=== PATIENT | male | born 1980 | race African-American/Black ===

== ENCOUNTER 2018-02-23 16:28 | Emergency (ER) | payer MEDICARE, OTHER ==
[~2018-02-23] VITALS: Ht 175.3 cm; Wt 74.8 kg
[~2018-02-23 16:28] MED LIST: BENZ1TAB5 PO; BISA-42 PO; CETI10TA16 PO; CHLO473M MM; CLON1TAB4 PO; DIVA500T17 PO; GUAN1TAB PO; HALO2TAB PO; IBUP-1027 PO; LEVO75TA5 PO; LISD40CA3 PO; OLAN10TA9 PO; TRAZ-86 PO; ZINC56.7 TP
[2018-02-23 16:53] VITALS: BP 123/84
[2018-02-23] MEDS ORDERED: AMOX1TAB61 PO (17:06)
--- NOTE | 2018-02-23 17:07 | PHYS DOC ---
Past Medical History Past Medical History: Anxiety, Bipolar, Hypothyroid, Seizure, Other Additional Past Medical Histor: Autism, mood disorder, ADHD, CATARACTS Past Surgical History: Other Additional Past Surgical Histo: wisdom tooth; testicular cyst Alcohol Use: None Drug Use: None Adult General Chief Complaint Chief Complaint: DENTAL PROBLEM HPI HPI Patient is a 37 year old male who presents to the ER with complaints of left lower dental pain with facial swelling for the last 5 days. He is accompanied by his mother, who is the historian. Pt has mental disabilities. She denies any fever, nausea, vomiting, or known injury. States that the dentist told her the infection needs to be gone before he can take care of his teeth. Review of Systems Review of Systems Constitutional: Denies fever or chills [] HENT: Denies nasal congestion or sore throat, reports left lower dental pain and facial swelling GI: Denies abdominal pain, nausea, or vomiting Integument: Denies rash or skin lesions [] Neurologic: Denies headache, focal weakness or sensory changes [] All other systems were reviewed and found to be within normal limits, except as documented in this note. Allergies Allergies Allergies Coded Allergies Type Severity Reaction Last Updated Verified No Known Drug Allergies 01/11/15 No Physical Exam Physical Exam Constitutional: Well developed, well nourished, no acute distress, non-toxic appearance, obese [] HENT: Normocephalic, atraumatic, bilateral external ears normal, oropharynx moist, diffuse plaque buildup noted, lower left dental tenderness to palpation, nose normal. [] Eyes: PERRLA, conjunctiva normal, no discharge. [] Neck: Normal range of motion, no tenderness, supple, no stridor. [] Skin: Warm, dry, no erythema, no rash. [] Neurologic: Alert and oriented X 3, normal motor function, normal sensory function, no focal deficits noted. [] Psychologic: Affect normal, judgement normal, mood normal. [] Current Patient Data Vital Signs Vital Signs Date Time Temp Pulse Resp B/P (MAP) Pulse Ox O2 Delivery O2 Flow Rate FiO2 02/23/18 16:53 98.5 90 16 123/84 (97) 96 Room Air 98.5 EKG EKG [] Radiology/Procedures Radiology/Procedures [] Course & Med Decision Making Course & Med Decision Making Pertinent Labs and Imaging studies reviewed. (See chart for details) Dx: infected dental caries, dental pain Rx for augmentin written, fill prescription and take as directed. May take tylenol or ibuprofen as needed for pain. Follow up with dentist next week, return to the ER if symptoms worsen. Patient's mother verbalized an understanding of home care, medications, follow-up, and return to ED instructions and was in agreement with the plan of care. [] Dragon Disclaimer Dragon Disclaimer This electronic medical record was generated, in whole or in part, using a voice recognition dictation system. Departure Departure Impression: Primary Impression: Infected dental caries Additional Impression: Pain due to dental caries Disposition: HOME, SELF-CARE Condition: STABLE Referrals: DULCE CHUN MD (PCP) Patient Instructions: Dental Caries-Brief Additional Instructions: Fill prescription and use as directed. He may take Tylenol or ibuprofen as needed for pain. Follow-up with your dentist next week. Return to the emergency room if symptoms worsen. Scripts Amoxicillin/Potassium Clav (AUGMENTIN 875-125 TABLET) 1 Each Tablet 1 TAB PO BID, #20 TAB 0 Refills Prov: GAMALIEL ROWLEY APRN 02/23/18 Problem Qualifiers GAMALIEL ROWLEY APRN Feb 23, 2018 17:07
== END 2018-02-23 17:20 | disposition home or self-care (01) ==
LOC: ER 16:28
DX: K04.7 Periapical abscess without sinus (principal); F31.9 Bipolar disorder, unspecified; E03.9 Hypothyroidism, unspecified; F84.0 Autistic disorder
CPT/HCPCS: 99283

== ENCOUNTER 2019-02-16 11:50 | Emergency (ER) | payer MEDICARE, OTHER ==
[~2019-02-16] VITALS: Ht 167.6 cm; Wt 74.8 kg
[~2019-02-16 11:50] MED LIST changes: +AMOX1TAB61 PO; -CLON1TAB4 PO; +CLONAZEPAM1 MG PO
[2019-02-16 12:19] VITALS: BP 144/105
[2019-02-16] MEDS ORDERED: AMOX1TAB61 PO (12:59)
[2019-02-16] MEDS ORDERED: LIDOCAINE 2% VISCOUS 15 ML SOLUTION. SWSW ONE (13:00)
--- NOTE | 2019-02-16 13:00 | PHYS DOC ---
Past Medical History Past Medical History: Anxiety, Bipolar, Hypothyroid, Seizure, Other Additional Past Medical Histor: Autism, mood disorder, ADHD, CATARACTS Past Surgical History: Other Additional Past Surgical Histo: wisdom tooth; testicular cyst Alcohol Use: None Drug Use: None Adult General Chief Complaint Chief Complaint: DENTAL PROBLEM HPI HPI Patient is a 38 year old male that presents with left facial swelling has been ongoing since last week however he says he has dental pain that is gotten severely worse since last night. Pt is developmentally delayed and staff state he is been in pain today. He states he is in excruciating pain. Review of Systems Review of Systems Constitutional: Denies fever or chills [] Eyes: Denies change in visual acuity, redness, or eye pain [] HENT: Denies nasal congestion or sore throat. Reports dental pain. Respiratory: Denies cough or shortness of breath [] Cardiovascular: No additional information not addressed in HPI [] GI: Denies abdominal pain, nausea, vomiting, bloody stools or diarrhea [] : Denies dysuria or hematuria [] Musculoskeletal: Denies back pain or joint pain [] Integument: Denies rash or skin lesions [] Neurologic: Denies headache, focal weakness or sensory changes [] Endocrine: Denies polyuria or polydipsia [] Complete systems were reviewed and found to be within normal limits, except as documented in this note. Allergies Allergies Allergies Coded Allergies Type Severity Reaction Last Updated Verified No Known Drug Allergies 01/11/15 No Physical Exam Physical Exam Constitutional: Well developed, well nourished, no acute distress, non-toxic appearance. [] HENT: Normocephalic, atraumatic, bilateral external ears normal, oropharynx moist, no oral exudates, nose normal. Left sided facial swelling cavity at Tooth # 18. Eyes: PERRLA, EOMI, conjunctiva normal, no discharge. [] Neck: Normal range of motion, no tenderness, supple, no stridor. [] Cardiovascular:Heart rate regular rhythm, no murmur [] Lungs & Thorax: Bilateral breath sounds clear to auscultation [] Abdomen: Bowel sounds normal, soft, no tenderness, no masses, no pulsatile masses. [] Skin: Warm, dry, no erythema, no rash. [] Back: No tenderness, no CVA tenderness. [] Extremities: No tenderness, no cyanosis, no clubbing, ROM intact, no edema. [] Neurologic: Alert and oriented X 3, normal motor function, normal sensory function, no focal deficits noted. [] Psychologic: Affect normal, judgement normal, mood normal. [] Current Patient Data Vital Signs Vital Signs Date Time Temp Pulse Resp B/P (MAP) Pulse Ox O2 Delivery O2 Flow Rate FiO2 02/16/19 12:19 98.7 84 16 144/105 (118) 97 Room Air 98.7 EKG EKG [] Radiology/Procedures Radiology/Procedures [] Course & Med Decision Making Course & Med Decision Making Pertinent Labs and Imaging studies reviewed. (See chart for details) Will give dental balls and place on Augmentin. Recommend to follow up with dentist. Regis Disclaimer Dragon Disclaimer This electronic medical record was generated, in whole or in part, using a voice recognition dictation system. Departure Departure Impression: Primary Impression: Infected dental caries Disposition: HOME, SELF-CARE Condition: STABLE Referrals: DULCE CHUN MD (PCP) Patient Instructions: Carbamide Peroxide dental solution, Dental Caries Additional Instructions: Thank you for visiting [facility]. We appreciate you trusting us with your care. If any additional problems come up don't hesitate to return to visit us. Please follow up with your primary care provider so they can plan additional care if needed and know about the problem that you had. If symptoms worsen come back to the Emergency Department. Any concerning symptoms that start such as chest pain, shortness of air, weakness or numbness on one side of the body, running high fevers or any other concerning symptoms return to the ER. Please follow up with a dentist as soon as possible. You have been prescribed an antibiotic today to help fight your infection. Please take all of the antibiotic as directed. If after 48 hours the infection is not improving, please return for more care. If the infection worsens, return to ER for additional care. Scripts Amoxicillin/Potassium Clav (AUGMENTIN 875-125 TABLET) 1 Each Tablet 1 TAB PO BID for 7 Days, #14 TAB Prov: AZEEM THOMPSON APRN 02/16/19 AZEEM THOMPSON APRN Feb 16, 2019 13:00
== END 2019-02-16 13:30 | disposition home or self-care (01) ==
LOC: ER 11:50
DX: K04.7 Periapical abscess without sinus (principal); E03.9 Hypothyroidism, unspecified; F31.9 Bipolar disorder, unspecified
CPT/HCPCS: 99283

== ENCOUNTER 2019-08-09 18:01 | Observation (INO) | payer OTHER ==
[~2019-08-09 18:01] MED LIST changes: +ALPR1TAB6 PO; +BENZ2TAB5 PO; +CLON0.1T PO; +CLON0.2T PO; +DOCU-153 PO; +HALO5TAB PO; +LEVO100T5 PO; +PANT40TA77 PO; +POLY17PO28 PO; +QUET200T4 PO; +TRAZ-123 PO; -TRAZ-86 PO
[2019-08-09] MEDS ORDERED: guaiFENesin ORAL 200 MG/10 ML LIQUID. PO PRN (18:30)
[2019-08-09] MEDS ORDERED: ACETAMINOPHEN 325 MG TABLET. PO PRN (18:30)
[2019-08-09] MEDS ORDERED: DOCUSATE SODIUM 100 MG CAPSULE. PO PRN (18:30)
[2019-08-09] MEDS ORDERED: ONDANSETRON PF 4 MG/2 ML VIAL. IV PRN (18:30)
[2019-08-09] MEDS ORDERED: ALPRAZolam 1 MG TABLET PO PRN (18:30)
[2019-08-09] MEDS ORDERED: QUEtiapine 25 MG TABLET. PO PRN (18:30)
[2019-08-09] MEDS ORDERED: ALBUTEROL SULFATE 2.5 MG/3 ML NEBU. NEB PRN (18:30)
[2019-08-09] MEDS ORDERED: diphenhydrAMINE 50 MG/ML VIAL IVP PRN (18:30)
[2019-08-09] MEDS ORDERED: BISACODYL 5 MG TABLET.DR. PO PRN (18:30)
--- NOTE | 2019-08-09 18:45 | PDOC1 ---
History and Physical Date of Admission Date of Admission 08/09/2019 Identification/Chief Complaint Chief Complaint Elevated Depakote levels Source Source: Caregiver, Chart review History of Present Illness History of Present Illness Patient is a 39 year old male who had been brought to the hospital on 08/08/2019 for abdominal discomfort and found to have a possible ileus. The patient was seen by GI, Psych and Neurology. GI deemed the patient appropriate for discharge after he had a bowel movement which seemed to alleviate the symptoms that brought patient into the hospital. Psychiatry recommended decreasing the amount of haldol and instead provide seroquel and ativan as means to treat the patient's agitation. Neurology oracle manufacturing consultant also evaluated the patient and he recommended adjusting the dose of depakotedue to his elevated levels of 130, he had ordered a level in the am and his recommendations are as follow: History of localization-onset epilepsy, last seizure in 2011. Abnormal head CT. 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 As the radiology report states, this is most likely ex vacuo dilatation which of course is to be expected with progression of his intellectual disability. I highly doubt that he has normal pressure hydrocephalus. Furthermore, in order to prove he has it, we would have to send him to a specialized center such as for diagnostic lumbar puncture with pre- and post assessment of gait and intellectual function. I doubt that we would be able to see any change in his intellectual status after the lumbar puncture, nor would we see any change in his gait, which has been stable as long as I have been following him. Funduscopy shows no evidence of increased intracranial pressure. Large amount of stool in the colon. Recommendations: Back off on his psychotropic medications, see orders. Psychiatry consultation Check Depakote levels Physical and Occupational Therapy In regards to possible normal pressure hydrocephalus, per the discussion above, I do not recommend any other further treatment or work-up.* *copied from consultation Patient was readmitted to ensure no further changes to his medications need to be done and to ensure no further agitation would be present. At the time of this note the patient is responding in yes and no to my questions. I am unable to have a meaningful conversation, Clinically patient seems stable and in no acute distress, he is pleasant and enjoying an ice cream at the moment with no GI disturbances. Plan of care discussed with nursing staff, no concerns voiced at the time of this note Past Medical History CENTRAL NERVOUS SYSTEM: Dementia, Seizure Psych: Anxiety, Bipolar, Other Endocrine: Hypothyroidism Past Surgical History Past Surgical History: Appendectomy, Other Social History ALCOHOL: none Drugs: None Allergies Allergies Allergies Coded Allergies Type Severity Reaction Last Updated Verified No Known Drug Allergies 01/11/15 No ROS Review of System unable to assess due to autism Physical Exam Physical Exam GEN.: No apparent distress. Alert and oriented in person HEENT: Head is normocephalic, atraumatic NECK: Supple. LUNGS: Clear to auscultation. HEART: RRR, S1, S2 present. Peripheral pulses intact ABDOMEN: Soft, nontender. Positive bowel sounds. EXTREMITIES: Without any cyanosis. NEUROLOGIC: CN 2 to 12 grossly intact no motor deficits appreciated PSYCHIATRIC: unable to assess SKIN: No ulcerations VTE Prophylaxis Ordered VTE Prophylaxis Devices: Yes VTE Pharmacological Prophylaxi: No Assessment/Plan Assessment/Plan Elevated depakote level History of autism long term resident. History of constipation with no evidence of ileus on x ray Plan: continue with home meds will order Amitiza as recommended by GI oracle manufacturing consultant on last admission valproic acid in am consult neurolgy in am further recommendations based on clinical course dvt prophylaxis: SCD CYRIL JOHNSON MD Aug 09, 2019 18:45
[2019-08-09 19:00] VITALS: BP 144/88
[2019-08-09] MEDS: DOCUSATE SODIUM 100 MG CAPSULE. PO SCH (20:23)
[2019-08-09] MEDS: LUBIPROSTONE 24 MCG CAPSULE PO SCH (20:23)
[2019-08-09] MEDS: cloNIDine HCL 0.2 MG TABLET PO SCH (20:24)
[2019-08-09] MEDS ORDERED: clonazePAM 0.5 MG TABLET PO SCH (21:00)
[2019-08-09] MEDS ORDERED: traZODone 100 MG TABLET. PO SCH (21:00)
[2019-08-09] MEDS ORDERED: QUEtiapine 100 MG TABLET. PO SCH (21:00)
[2019-08-10 03:41] VITALS: BP 81/51
[2019-08-10 05:44] LABS: VAL ACID 87 mcg/mL (50-100)
[2019-08-10 07:00] VITALS: BP 113/84
[2019-08-10] MEDS: LEVOTHYROXINE 100 MCG TABLET PO SCH (07:00)
[2019-08-10] MEDS: PANTOPRAZOLE 40 MG TABLET.DR. PO SCH (07:30)
[2019-08-10] MEDS: traZODone 100 MG TABLET. PO SCH ×3 (08:00→22:57)
[2019-08-10] MEDS: cloNIDine HCL 0.1 MG TABLET PO SCH ×2 (08:00→14:21)
[2019-08-10] MEDS: LUBIPROSTONE 24 MCG CAPSULE PO SCH ×2 (08:00→17:00)
[2019-08-10] MEDS: CETIRIZINE HCL 10 MG TABLET. PO SCH (09:00)
[2019-08-10] MEDS: HALOPERIDOL 2 MG TABLET. PO SCH ×4 (09:00→22:57)
[2019-08-10] MEDS: POLYETHYLENE GLYCOL 3350 17 GM PACKET. PO SCH (09:00)
[2019-08-10] MEDS: DOCUSATE SODIUM 100 MG CAPSULE. PO SCH ×3 (09:00→22:57)
[2019-08-10] MEDS ORDERED: BENZTROPINE MESYLATE 1 MG TABLET. PO SCH (09:00)
[2019-08-10] MEDS: BENZTROPINE MESYLATE 1 MG TABLET. PO SCH (09:00)
--- NOTE | 2019-08-10 09:08 | PDOC ---
PROGRESS NOTES Chief Complaint Chief Complaint Elevated depakote level History of autism jail resident. History of constipation with no evidence of ileus on x ray Plan: continue with dose adjustment as per our business systems consultant, recommendations greatly appreciated. will order Amitiza as recommended by GI business systems consultant on last admission further recommendations based on clinical course reassess in the am hopefully discharge in the next 24 to 48 hours if he does not present agitation or further dose adjustments. dvt prophylaxis: SCD History of Present Illness History of Present Illness Patient today quite lethargic, no acute events reported overnight, discussed with business systems consultant. Recommendations greatly appreciated. Vitals Vitals Vital Signs Date Time Temp Pulse Resp B/P (MAP) Pulse Ox O2 Delivery O2 Flow Rate FiO2 08/10/19 07:00 74 16 113/84 (94) 100 Room Air 08/10/19 03:41 97.7 97.7 Physical Exam General: No acute distress Heart: Regular rate, Normal S1, Normal S2 Lungs: Clear Abdomen: Normal bowel sounds, Soft, No tenderness Extremities: No clubbing, No cyanosis, No edema Skin: No rashes, No breakdown Labs LABS Laboratory Tests Test 08/10/19 04:41 Valproic Acid (Depakene) Level 87 mcg/mL (50-100) Valproic Acid Last Dose Date 08/08/19 Valproic Acid Last Dose Time 2099 Review of Systems Review of Systems unable to obtain due to autism Comment Review of Relevant I have reviewed the following items dustin (where applicable) has been applied. Labs Laboratory Tests Test 08/10/19 04:41 Valproic Acid (Depakene) Level 87 mcg/mL (50-100) Valproic Acid Last Dose Date 08/08/19 Valproic Acid Last Dose Time 2099 Laboratory Tests Test 08/10/19 04:41 Valproic Acid (Depakene) Level 87 mcg/mL (50-100) Valproic Acid Last Dose Date 08/08/19 Valproic Acid Last Dose Time 2100 Medications Current Medications Ondansetron HCl (Zofran) 4 mg PRN Q4HRS PRN IV NAUSEA/VOMITING; Start 08/09/19 at 18:30 Acetaminophen (Tylenol) 650 mg PRN Q4HRS PRN PO TEMP OVER 100.4F OR MILD PAIN; Start 08/09/19 at 18:30 Diphenhydramine HCl (Benadryl) 25 mg PRN Q4HRS PRN IVP ITCHING; Start 08/09/19 at 18:30 Docusate Sodium (Colace) 100 mg PRN BID PRN PO CONSTIPATION; Start 08/09/19 at 18:30 Albuterol Sulfate (Ventolin Neb Soln) 2.5 mg PRN Q4HRS PRN NEB SHORTNESS OF BREATH; Start 08/09/19 at 18:30 Guaifenesin (Robitussin) 200 mg PRN Q4HRS PRN PO COUGH; Start 08/09/19 at 18:30 Lorazepam (Ativan Inj) 2 mg PRN Q4HRS PRN IV ANXIETY / AGITATION; Start 08/09/19 at 18:30 Alprazolam (Xanax) 1 mg PRN DAILY PRN PO aggitation; Start 08/09/19 at 18:30 Bisacodyl (Dulcolax Tab) 5 mg PRN BID PRN PO CONSTIPATION- 2ND CHOICE; Start 08/09/19 at 18:30 Cetirizine HCl (ZyrTEC) 10 mg DAILY PO ; Start 08/10/19 at 09:00 Clonidine HCl (Catapres) 0.1 mg BIDWBKFT/MARYAN PO ; Start 08/10/19 at 08:00 Clonidine HCl (Catapres) 0.2 mg QHS PO Last administered on 08/09/19at 20:24; Start 08/09/19 at 21:00 Docusate Sodium (Colace) 100 mg BID PO Last administered on 08/09/19at 20:23; Start 08/09/19 at 21:00 Levothyroxine Sodium (Synthroid) 100 mcg DAILY07 PO ; Start 08/10/19 at 07:00 Pantoprazole Sodium (Protonix) 40 mg DAILYAC PO ; Start 08/10/19 at 07:30 Polyethylene Glycol (miraLAX PACKET) 17 gm DAILY PO ; Start 08/10/19 at 09:00 Trazodone HCl (Desyrel) 100 mg DAILYWBKFT PO ; Start 08/10/19 at 08:00 Trazodone HCl (Desyrel) 200 mg QHS PO Last administered on 08/09/19at 20:23; Start 08/09/19 at 21:00; Stop 08/10/19 at 08:50; Status DC Benztropine Mesylate (Cogentin) 2 mg DAILY PO ; Start 08/10/19 at 09:00; Stop 08/10/19 at 08:50; Status DC Clonazepam (KlonoPIN) 1 mg QHS PO Last administered on 08/09/19at 20:22; Start 08/09/19 at 21:00; Stop 08/10/19 at 08:50; Status DC Quetiapine Fumarate (SEROquel) 200 mg QHS PO Last administered on 08/09/19at 20:23; Start 08/09/19 at 21:00; Stop 08/10/19 at 08:50; Status DC Quetiapine Fumarate (SEROquel) 25 mg PRN Q8HRS PRN PO agitation- 2ND CHOICE; Start 08/09/19 at 18:30 Lubiprostone (Amitiza) 24 mcg BIDWMEALS PO Last administered on 08/09/19at 20:23; Start 08/09/19 at 19:00 Benztropine Mesylate (Cogentin) 1 mg DAILY PO ; Start 08/10/19 at 09:00 Clonazepam (KlonoPIN) 0.5 mg QHS PO ; Start 08/10/19 at 21:00 Quetiapine Fumarate (SEROquel) 100 mg QHS PO ; Start 08/10/19 at 21:00 Trazodone HCl (Desyrel) 100 mg QHS PO ; Start 08/10/19 at 21:00 Haloperidol (Haldol) 2 mg TID PO ; Start 08/10/19 at 09:00 Divalproex Sodium (Depakote Er) 500 mg QHS PO ; Start 08/10/19 at 21:00 Active Scripts Active Pantoprazole Sodium (Pantoprazole Sodium) 40 Mg Tablet.dr 40 Mg PO DAILYAC 30 Days Reported Dok (Docusate Sodium) 100 Mg Capsule 100 Mg PO BID Alprazolam 1 Mg Tablet 1 Tab PO DAILY PRN Seroquel (Quetiapine Fumarate) 200 Mg Tablet 1 Tab PO QHS Polyethylene Glycol 3350 17 Gm Powd.pack 17 Gm PO DAILY Levothyroxine Sodium 100 Mcg Tablet 1 Tab PO DAILY Haloperidol 5 Mg Tablet 1 Tab PO TID Benztropine Mesylate 2 Mg Tablet 2 Mg PO DAILY Clonidine Hcl 0.2 Mg Tablet 1 Tab PO QHS Clonidine Hcl 0.1 Mg Tablet 0.1 Mg PO BIDWBKFT/MARYAN Clonazepam 1 Mg Tablet 1 Tab PO QHS Trazodone Hcl 100 Mg Tablet 200 Mg PO QHS Trazodone Hcl 100 Mg Tablet 100 Mg PO DAILYWBKFT Divalproex Sodium Er (Divalproex Sodium) 500 Mg Tab.er.24h 2 Tab PO QHS Cetirizine Hcl 10 Mg Tablet 1 Tab PO DAILY Dulcolax (Bisacodyl) 5 Mg Tablet.dr 5 Mg PO PRN BID PRN Vitals/I & O Vital Sign - Last 24 Hours 08/09/19 08/09/19 08/09/19 08/10/19 19:00 20:24 23:42 03:41 Temp 97.5 97.7 97.5 97.7 Pulse 77 71 79 Resp 18 16 18 B/P (MAP) 144/88 (106) 144/88 81/51 (61) Pulse Ox 93 O2 Delivery Room Air Room Air 08/10/19 07:00 Pulse 74 Resp 16 B/P (MAP) 113/84 (94) Pulse Ox 100 O2 Delivery Room Air Intake and Output 08/09/19 08/09/19 08/10/19 15:00 23:00 07:00 Intake Total 200 ml 0 ml Balance 200 ml 0 ml CYRIL JOHNSON MD Aug 10, 2019 09:08
--- NOTE | 2019-08-10 10:44 | PDOC ---
PROGRESS NOTES Assessment History of localization-onset epilepsy, last seizure in 2011. Autism, intellectual disability Abnormal head CT. Doubt normal pressure hydrocephalus Large amount of stool in the colon. Encephalopathy due to excessive psychotropic medications Patient was discharged yesterday, I wanted the patient observed the least one more night, I spoke to Dr. Alberto Garner admitted the patient. Unfortunate patient received the high doses of psychotropic medications again last night and is very sedated today. His Depakote level was 130 yesterday morning, it's down to 87 this morning Plan Observe overnight, still sedated Psychiatry saw patient yesterday He should be on the following medications, holding if sedated: Alprazolam (Xanax) 1 mg DAILY PRN PO aggitation Divalproex Sodium (Depakote Er) 500 mg QHS PO Trazodone HCl (Desyrel) 100 mg QHS PO Benztropine Mesylate (Cogentin) 1 mg DAILY PO Clonazepam (KlonoPIN) 0.5 mg QHS PO Haloperidol (Haldol) 2 mg TID PO Quetiapine Fumarate (SEROquel) 100 mg QHS PO Discussed with Dr. Dominguez Subjective none Objective Vital Signs Date Time Temp Pulse Resp B/P (MAP) Pulse Ox O2 Delivery O2 Flow Rate FiO2 08/10/19 07:00 74 16 113/84 (94) 100 Room Air 08/10/19 03:41 97.7 97.7 Intake and Output 08/10/19 07:00 Intake Total 200 ml Balance 200 ml Intake Oral 200 ml PHYSICAL EXAM Sleeping, difficult to arouse PERRL. EOMI. CN: no focal findings. Muscle tone: normal. Muscle strength: 4/5 DTR: 2+ Plantar reflex: flexor Gait: not tested Sensory exam: not cooperative. Cerebellar: Not cooperative. Review of Relevant I have reviewed the following items dustin (where applicable) has been applied. Labs Laboratory Tests Test 08/10/19 04:41 Valproic Acid (Depakene) Level 87 mcg/mL (50-100) Valproic Acid Last Dose Date 08/08/19 Valproic Acid Last Dose Time 2100 Laboratory Tests Test 08/10/19 04:41 Valproic Acid (Depakene) Level 87 mcg/mL (50-100) Valproic Acid Last Dose Date 08/08/19 Valproic Acid Last Dose Time 2100 Medications Current Medications Ondansetron HCl (Zofran) 4 mg PRN Q4HRS PRN IV NAUSEA/VOMITING; Start 08/09/19 at 18:30 Acetaminophen (Tylenol) 650 mg PRN Q4HRS PRN PO TEMP OVER 100.4F OR MILD PAIN; Start 08/09/19 at 18:30 Diphenhydramine HCl (Benadryl) 25 mg PRN Q4HRS PRN IVP ITCHING; Start 08/09/19 at 18:30 Docusate Sodium (Colace) 100 mg PRN BID PRN PO CONSTIPATION; Start 08/09/19 at 18:30 Albuterol Sulfate (Ventolin Neb Soln) 2.5 mg PRN Q4HRS PRN NEB SHORTNESS OF BREATH; Start 08/09/19 at 18:30 Guaifenesin (Robitussin) 200 mg PRN Q4HRS PRN PO COUGH; Start 08/09/19 at 18:30 Lorazepam (Ativan Inj) 2 mg PRN Q4HRS PRN IV ANXIETY / AGITATION; Start 08/09/19 at 18:30 Alprazolam (Xanax) 1 mg PRN DAILY PRN PO aggitation; Start 08/09/19 at 18:30 Bisacodyl (Dulcolax Tab) 5 mg PRN BID PRN PO CONSTIPATION- 2ND CHOICE; Start 08/09/19 at 18:30 Cetirizine HCl (ZyrTEC) 10 mg DAILY PO ; Start 08/10/19 at 09:00 Clonidine HCl (Catapres) 0.1 mg BIDWBKFT/MARYNA PO ; Start 08/10/19 at 08:00 Clonidine HCl (Catapres) 0.2 mg QHS PO Last administered on 08/09/19at 20:24; Start 08/09/19 at 21:00 Docusate Sodium (Colace) 100 mg BID PO Last administered on 08/09/19at 20:23; Start 08/09/19 at 21:00 Levothyroxine Sodium (Synthroid) 100 mcg DAILY07 PO ; Start 08/10/19 at 07:00 Pantoprazole Sodium (Protonix) 40 mg DAILYAC PO ; Start 08/10/19 at 07:30 Polyethylene Glycol (miraLAX PACKET) 17 gm DAILY PO ; Start 08/10/19 at 09:00 Trazodone HCl (Desyrel) 100 mg DAILYWBKFT PO ; Start 08/10/19 at 08:00 Trazodone HCl (Desyrel) 200 mg QHS PO Last administered on 08/09/19at 20:23; Start 08/09/19 at 21:00; Stop 08/10/19 at 08:50; Status DC Benztropine Mesylate (Cogentin) 2 mg DAILY PO ; Start 08/10/19 at 09:00; Stop 08/10/19 at 08:50; Status DC Clonazepam (KlonoPIN) 1 mg QHS PO Last administered on 08/09/19at 20:22; Start 08/09/19 at 21:00; Stop 08/10/19 at 08:50; Status DC Quetiapine Fumarate (SEROquel) 200 mg QHS PO Last administered on 08/09/19at 20:23; Start 08/09/19 at 21:00; Stop 08/10/19 at 08:50; Status DC Quetiapine Fumarate (SEROquel) 25 mg PRN Q8HRS PRN PO agitation- 2ND CHOICE; Start 08/09/19 at 18:30 Lubiprostone (Amitiza) 24 mcg BIDWMEALS PO Last administered on 08/09/19at 20:23; Start 08/09/19 at 19:00 Benztropine Mesylate (Cogentin) 1 mg DAILY PO ; Start 08/10/19 at 09:00 Clonazepam (KlonoPIN) 0.5 mg QHS PO ; Start 08/10/19 at 21:00 Quetiapine Fumarate (SEROquel) 100 mg QHS PO ; Start 08/10/19 at 21:00 Trazodone HCl (Desyrel) 100 mg QHS PO ; Start 08/10/19 at 21:00 Haloperidol (Haldol) 2 mg TID PO ; Start 08/10/19 at 09:00 Divalproex Sodium (Depakote Er) 500 mg QHS PO ; Start 08/10/19 at 21:00 Active Scripts Active Pantoprazole Sodium (Pantoprazole Sodium) 40 Mg Tablet.dr 40 Mg PO DAILYAC 30 Days Reported Dok (Docusate Sodium) 100 Mg Capsule 100 Mg PO BID Alprazolam 1 Mg Tablet 1 Tab PO DAILY PRN Seroquel (Quetiapine Fumarate) 200 Mg Tablet 1 Tab PO QHS Polyethylene Glycol 3350 17 Gm Powd.pack 17 Gm PO DAILY Levothyroxine Sodium 100 Mcg Tablet 1 Tab PO DAILY Haloperidol 5 Mg Tablet 1 Tab PO TID Benztropine Mesylate 2 Mg Tablet 2 Mg PO DAILY Clonidine Hcl 0.2 Mg Tablet 1 Tab PO QHS Clonidine Hcl 0.1 Mg Tablet 0.1 Mg PO BIDWBKFT/MARYAN Clonazepam 1 Mg Tablet 1 Tab PO QHS Trazodone Hcl 100 Mg Tablet 200 Mg PO QHS Trazodone Hcl 100 Mg Tablet 100 Mg PO DAILYWBKFT Divalproex Sodium Er (Divalproex Sodium) 500 Mg Tab.er.24h 2 Tab PO QHS Cetirizine Hcl 10 Mg Tablet 1 Tab PO DAILY Dulcolax (Bisacodyl) 5 Mg Tablet.dr 5 Mg PO PRN BID PRN Vitals/I & O Vital Sign - Last 24 Hours 08/09/19 08/09/19 08/09/19 08/10/19 19:00 20:24 23:42 03:41 Temp 97.5 97.7 97.5 97.7 Pulse 77 71 79 Resp 18 16 18 B/P (MAP) 144/88 (106) 144/88 81/51 (61) Pulse Ox 93 O2 Delivery Room Air Room Air 08/10/19 07:00 Pulse 74 Resp 16 B/P (MAP) 113/84 (94) Pulse Ox 100 O2 Delivery Room Air Intake and Output 08/09/19 08/09/19 08/10/19 15:00 23:00 07:00 Intake Total 200 ml 0 ml Balance 200 ml 0 ml JOE WALKER MD Aug 10, 2019 10:44
[2019-08-10 19:00] VITALS: BP 103/75
[2019-08-10] MEDS: clonazePAM 0.5 MG TABLET PO SCH ×2 (21:00→22:57)
[2019-08-10] MEDS: DIVALPROEX EXTENDED RELEASE 500 MG TAB.ER.24H. PO SCH ×2 (21:00→22:57)
[2019-08-10] MEDS: QUEtiapine 100 MG TABLET. PO SCH ×2 (21:00→22:56)
[2019-08-10] MEDS: cloNIDine HCL 0.2 MG TABLET PO SCH ×2 (21:00→22:57)
[2019-08-11 03:00] VITALS: BP 112/74
[2019-08-11] MEDS: LEVOTHYROXINE 100 MCG TABLET PO SCH (05:53)
[2019-08-11] MEDS: PANTOPRAZOLE 40 MG TABLET.DR. PO SCH (05:53)
[2019-08-11 07:00] VITALS: BP 123/92
[2019-08-11] MEDS: POLYETHYLENE GLYCOL 3350 17 GM PACKET. PO SCH (09:00)
[2019-08-11] MEDS: CETIRIZINE HCL 10 MG TABLET. PO SCH (09:04)
[2019-08-11] MEDS: traZODone 100 MG TABLET. PO SCH (09:04)
[2019-08-11] MEDS: BENZTROPINE MESYLATE 1 MG TABLET. PO SCH (09:04)
[2019-08-11] MEDS: DOCUSATE SODIUM 100 MG CAPSULE. PO SCH (09:05)
[2019-08-11] MEDS: HALOPERIDOL 2 MG TABLET. PO SCH ×2 (09:05→12:59)
[2019-08-11] MEDS: cloNIDine HCL 0.1 MG TABLET PO SCH ×2 (09:05→13:00)
[2019-08-11] MEDS: LUBIPROSTONE 24 MCG CAPSULE PO SCH (09:05)
[2019-08-11 11:00] VITALS: BP 116/81
--- NOTE | 2019-08-11 11:41 | PDOC ---
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 History of constipation with no evidence of ileus on x ray Plan: continue with dose adjustment as per our business sales consultant, recommendations greatly appreciated. will order Amitiza as recommended by GI business sales consultant on last admission further recommendations based on clinical course meds need to be corrected, per RN. hopefully discharge in the next 24 to 48 hours if he does not present agitation or further dose adjustments. dvt prophylaxis: SCD History of Present Illness History of Present Illness LESS lethargic, Vitals Vitals Vital Signs Date Time Temp Pulse Resp B/P (MAP) Pulse Ox O2 Delivery O2 Flow Rate FiO2 08/11/19 09:05 90 123/92 08/11/19 08:00 Room Air 08/11/19 07:00 98.3 16 96 98.3 Physical Exam General: Cooperative, No acute distress Heart: Regular rate, Normal S1, Normal S2 Lungs: Clear Abdomen: Normal bowel sounds, Soft, No tenderness Extremities: No clubbing, No cyanosis, No edema Skin: No rashes, No breakdown Comment Review of Relevant I have reviewed the following items dustin (where applicable) has been applied. Labs Laboratory Tests Test 08/10/19 04:41 Valproic Acid (Depakene) Level 87 mcg/mL (50-100) Valproic Acid Last Dose Date 08/08/19 Valproic Acid Last Dose Time 2100 Medications Current Medications Ondansetron HCl (Zofran) 4 mg PRN Q4HRS PRN IV NAUSEA/VOMITING; Start 08/09/19 at 18:30 Acetaminophen (Tylenol) 650 mg PRN Q4HRS PRN PO TEMP OVER 100.4F OR MILD PAIN; Start 08/09/19 at 18:30 Diphenhydramine HCl (Benadryl) 25 mg PRN Q4HRS PRN IVP ITCHING; Start 08/09/19 at 18:30 Docusate Sodium (Colace) 100 mg PRN BID PRN PO CONSTIPATION; Start 08/09/19 at 18:30 Albuterol Sulfate (Ventolin Neb Soln) 2.5 mg PRN Q4HRS PRN NEB SHORTNESS OF BREATH; Start 08/09/19 at 18:30 Guaifenesin (Robitussin) 200 mg PRN Q4HRS PRN PO COUGH; Start 08/09/19 at 18:30 Lorazepam (Ativan Inj) 2 mg PRN Q4HRS PRN IV ANXIETY / AGITATION; Start 08/09/19 at 18:30 Alprazolam (Xanax) 1 mg PRN DAILY PRN PO aggitation; Start 08/09/19 at 18:30 Bisacodyl (Dulcolax Tab) 5 mg PRN BID PRN PO CONSTIPATION- 2ND CHOICE; Start 08/09/19 at 18:30 Cetirizine HCl (ZyrTEC) 10 mg DAILY PO Last administered on 08/11/19at 09:04; Start 08/10/19 at 09:00 Clonidine HCl (Catapres) 0.1 mg BIDWBKFT/MARYAN PO Last administered on 08/11/19at 09:05; Start 08/10/19 at 08:00 Clonidine HCl (Catapres) 0.2 mg QHS PO Last administered on 08/10/19at 22:57; Start 08/09/19 at 21:00 Docusate Sodium (Colace) 100 mg BID PO Last administered on 08/11/19at 09:05; Start 08/09/19 at 21:00 Levothyroxine Sodium (Synthroid) 100 mcg DAILY07 PO Last administered on 08/11/19at 05:53; Start 08/10/19 at 07:00 Pantoprazole Sodium (Protonix) 40 mg DAILYAC PO Last administered on 08/11/19at 05:53; Start 08/10/19 at 07:30 Polyethylene Glycol (miraLAX PACKET) 17 gm DAILY PO ; Start 08/10/19 at 09:00 Trazodone HCl (Desyrel) 100 mg DAILYWBKFT PO Last administered on 08/11/19at 09:04; Start 08/10/19 at 08:00 Trazodone HCl (Desyrel) 200 mg QHS PO Last administered on 08/09/19at 20:23; Start 08/09/19 at 21:00; Stop 08/10/19 at 08:50; Status DC Benztropine Mesylate (Cogentin) 2 mg DAILY PO ; Start 08/10/19 at 09:00; Stop 08/10/19 at 08:50; Status DC Clonazepam (KlonoPIN) 1 mg QHS PO Last administered on 08/09/19at 20:22; Start 08/09/19 at 21:00; Stop 08/10/19 at 08:50; Status DC Quetiapine Fumarate (SEROquel) 200 mg QHS PO Last administered on 08/09/19at 2 0:23; Start 08/09/19 at 21:00; Stop 08/10/19 at 08:50; Status DC Quetiapine Fumarate (SEROquel) 25 mg PRN Q8HRS PRN PO agitation- 2ND CHOICE; Start 08/09/19 at 18:30 Lubiprostone (Amitiza) 24 mcg BIDWMEALS PO Last administered on 08/11/19at 09:05; Start 08/09/19 at 19:00 Benztropine Mesylate (Cogentin) 1 mg DAILY PO Last administered on 08/11/19at 09:04; Start 08/10/19 at 09:00 Clonazepam (KlonoPIN) 0.5 mg QHS PO Last administered on 08/10/19at 22:57; Start 08/10/19 at 21:00 Quetiapine Fumarate (SEROquel) 100 mg QHS PO Last administered on 08/10/19at 22:56; Start 08/10/19 at 21:00 Trazodone HCl (Desyrel) 100 mg QHS PO Last administered on 08/10/19at 22:57; Start 08/10/19 at 21:00 Haloperidol (Haldol) 2 mg TID PO Last administered on 08/11/19at 09:05; Start 08/10/19 at 09:00 Divalproex Sodium (Depakote Er) 500 mg QHS PO Last administered on 08/10/19at 22:57; Start 08/10/19 at 21:00 Active Scripts Active Pantoprazole Sodium (Pantoprazole Sodium) 40 Mg Tablet. 40 Mg PO DAILYAC 30 Days Reported Dok (Docusate Sodium) 100 Mg Capsule 100 Mg PO BID Alprazolam 1 Mg Tablet 1 Tab PO DAILY PRN Seroquel (Quetiapine Fumarate) 200 Mg Tablet 1 Tab PO QHS Polyethylene Glycol 3350 17 Gm Powd.pack 17 Gm PO DAILY Levothyroxine Sodium 100 Mcg Tablet 1 Tab PO DAILY Haloperidol 5 Mg Tablet 1 Tab PO TID Benztropine Mesylate 2 Mg Tablet 2 Mg PO DAILY Clonidine Hcl 0.2 Mg Tablet 1 Tab PO QHS Clonidine Hcl 0.1 Mg Tablet 0.1 Mg PO BIDWBKFT/MARYAN Clonazepam 1 Mg Tablet 1 Tab PO QHS Trazodone Hcl 100 Mg Tablet 200 Mg PO QHS Trazodone Hcl 100 Mg Tablet 100 Mg PO DAILYWBKFT Divalproex Sodium Er (Divalproex Sodium) 500 Mg Tab.er.24h 2 Tab PO QHS Cetirizine Hcl 10 Mg Tablet 1 Tab PO DAILY Dulcolax (Bisacodyl) 5 Mg Tablet.dr 5 Mg PO PRN BID PRN Vitals/I & O Vital Sign - Last 24 Hours 08/10/19 08/10/19 08/10/19 08/10/19 14:21 19:00 20:00 22:57 Temp 97.5 97.5 Pulse 74 81 81 Resp 18 B/P (MAP) 113/84 103/75 (84) 103/75 O2 Delivery Room Air Room Air 08/11/19 08/11/19 08/11/19 08/11/19 03:00 07:00 08:00 09:05 Temp 97.1 98.3 97.1 98.3 Pulse 90 90 90 Resp 18 16 B/P (MAP) 112/74 (87) 123/92 (102) 123/92 Pulse Ox 98 96 O2 Delivery Room Air Room Air Room Air Intake and Output 08/10/19 08/10/19 08/11/19 15:00 23:00 07:00 Intake Total 240 ml Balance 240 ml ROSE WARREN MD Aug 11, 2019 11:41
--- NOTE | 2019-08-11 13:55 | PDOC3 ---
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 History of constipation with no evidence of ileus on x ray Plan: continue with dose adjustment as per our renewable energy consultant, recommendations greatly ap preciated. Amitiza as recommended by GI renewable energy consultant on last admission meds corrected, per RN. dr LANIE HORN WITH discharge PER RN dvt prophylaxis: SCD History of Present Illness History of Present Illness LESS lethargic, Vitals Vitals Vital Signs Date Time Temp Pulse Resp B/P (MAP) Pulse Ox O2 Delivery O2 Flow Rate FiO2 08/11/19 09:05 90 123/92 08/11/19 08:00 Room Air 08/11/19 07:00 98.3 16 96 98.3 Physical Exam General: Cooperative, No acute distress Heart: Regular rate, Normal S1, Normal S2 Lungs: Clear Abdomen: Normal bowel sounds, Soft, No tenderness Extremities: No clubbing, No cyanosis, No edema Skin: No rashes, No breakdown Comment Review of Relevant I have reviewed the following items dustin (where applicable) has been applied. Labs Laboratory Tests Test 08/10/19 04:41 Valproic Acid (Depakene) Level 87 mcg/mL (50-100) Valproic Acid Last Dose Date 08/08/19 Valproic Acid Last Dose Time 2100 Medications Brief Hospital Course Mr. Borges is a 39 old [sex] who presented with [DEPAKOTE TOXICITY, ACUTE ] CONDITION AT DISCHARGE: Improved Discharge Medications Current Medications Ondansetron HCl (Zofran) 4 mg PRN Q4HRS PRN IV NAUSEA/VOMITING; Start 08/09/19 at 18:30 Acetaminophen (Tylenol) 650 mg PRN Q4HRS PRN PO TEMP OVER 100.4F OR MILD PAIN; Start 08/09/19 at 18:30 Diphenhydramine HCl (Benadryl) 25 mg PRN Q4HRS PRN IVP ITCHING; Start 08/09/19 at 18:30 Docusate Sodium (Colace) 100 mg PRN BID PRN PO CONSTIPATION; Start 08/09/19 at 18:30 Albuterol Sulfate (Ventolin Neb Soln) 2.5 mg PRN Q4HRS PRN NEB SHORTNESS OF BREATH; Start 08/09/19 at 18:30 Guaifenesin (Robitussin) 200 mg PRN Q4HRS PRN PO COUGH; Start 08/09/19 at 18:30 Lorazepam (Ativan Inj) 2 mg PRN Q4HRS PRN IV ANXIETY / AGITATION; Start 08/09/19 at 18:30 Alprazolam (Xanax) 1 mg PRN DAILY PRN PO aggitation; Start 08/09/19 at 18:30 Bisacodyl (Dulcolax Tab) 5 mg PRN BID PRN PO CONSTIPATION- 2ND CHOICE; Start 08/09/19 at 18:30 Cetirizine HCl (ZyrTEC) 10 mg DAILY PO Last administered on 08/11/19at 09:04; Start 08/10/19 at 09:00 Clonidine HCl (Catapres) 0.1 mg BIDWBKFT/MARYAN PO Last administered on 08/11/19at 13:00; Start 08/10/19 at 08:00 Clonidine HCl (Catapres) 0.2 mg QHS PO Last administered on 08/10/19at 22:57; Start 08/09/19 at 21:00 Docusate Sodium (Colace) 100 mg BID PO Last administered on 08/11/19at 09:05; Start 08/09/19 at 21:00 Levothyroxine Sodium (Synthroid) 100 mcg DAILY07 PO Last administered on 08/11/19at 05:53; Start 08/10/19 at 07:00 Pantoprazole Sodium (Protonix) 40 mg DAILYAC PO Last administered on 08/11/19at 05:53; Start 08/10/19 at 07:30 Polyethylene Glycol (miraLAX PACKET) 17 gm DAILY PO ; Start 08/10/19 at 09:00 Trazodone HCl (Desyrel) 100 mg DAILYWBKFT PO Last administered on 08/11/19at 09:04; Start 08/10/19 at 08:00 Trazodone HCl (Desyrel) 200 mg QHS PO Last administered on 08/09/19at 20:23; Start 08/09/19 at 21:00; Stop 08/10/19 at 08:50; Status DC Benztropine Mesylate (Cogentin) 2 mg DAILY PO ; Start 08/10/19 at 09:00; Stop 08/10/19 at 08:50; Status DC Clonazepam (KlonoPIN) 1 mg QHS PO Last administered on 08/09/19at 20:22; Start 08/09/19 at 21:00; Stop 08/10/19 at 08:50; Status DC Quetiapine Fumarate (SEROquel) 200 mg QHS PO Last administered on 08/09/19at 20:23; Start 08/09/19 at 21:00; Stop 08/10/19 at 08:50; Status DC Quetiapine Fumarate (SEROquel) 25 mg PRN Q8HRS PRN PO agitation- 2ND CHOICE; Start 08/09/19 at 18:30 Lubiprostone (Amitiza) 24 mcg BIDWMEALS PO Last administered on 08/11/19at 09:05; Start 08/09/19 at 19:00 Benztropine Mesylate (Cogentin) 1 mg DAILY PO Last administered on 08/11/19at 09:04; Start 08/10/19 at 09:00 Clonazepam (KlonoPIN) 0.5 mg QHS PO Last administered on 08/10/19at 22:57; Start 08/10/19 at 21:00 Quetiapine Fumarate (SEROquel) 100 mg QHS PO Last administered on 08/10/19at 22:56; Start 08/10/19 at 21:00 Trazodone HCl (Desyrel) 100 mg QHS PO Last administered on 08/10/19at 22:57; Start 08/10/19 at 21:00 Haloperidol (Haldol) 2 mg TID PO Last administered on 08/11/19at 12:59; Start 08/10/19 at 09:00 Divalproex Sodium (Depakote Er) 500 mg QHS PO Last administered on 08/10/19at 22:57; Start 08/10/19 at 21:00 Active Scripts Active Pantoprazole Sodium (Pantoprazole Sodium) 40 Mg Tablet.dr 40 Mg PO DAILYAC 30 Days Reported Dok (Docusate Sodium) 100 Mg Capsule 100 Mg PO BID Alprazolam 1 Mg Tablet 1 Tab PO DAILY PRN Seroquel (Quetiapine Fumarate) 200 Mg Tablet 1 Tab PO QHS Polyethylene Glycol 3350 17 Gm Powd.pack 17 Gm PO DAILY Levothyroxine Sodium 100 Mcg Tablet 1 Tab PO DAILY Haloperidol 5 Mg Tablet 1 Tab PO TID Benztropine Mesylate 2 Mg Tablet 2 Mg PO DAILY Clonidine Hcl 0.2 Mg Tablet 1 Tab PO QHS Clonidine Hcl 0.1 Mg Tablet 0.1 Mg PO BIDWBKFT/MARYAN Clonazepam 1 Mg Tablet 1 Tab PO QHS Trazodone Hcl 100 Mg Tablet 200 Mg PO QHS Trazodone Hcl 100 Mg Tablet 100 Mg PO DAILYWBKFT Divalproex Sodium Er (Divalproex Sodium) 500 Mg Tab.er.24h 2 Tab PO QHS Cetirizine Hcl 10 Mg Tablet 1 Tab PO DAILY Dulcolax (Bisacodyl) 5 Mg Tablet.dr 5 Mg PO PRN BID PRN Vital Signs Vital Signs Date Time Temp Pulse Resp B/P (MAP) Pulse Ox O2 Delivery O2 Flow Rate FiO2 08/11/19 13:00 98 116/81 08/11/19 11:00 97.7 16 98 Room Air 97.7 Labs Laboratory Tests Test 08/10/19 04:41 Valproic Acid (Depakene) Level 87 mcg/mL (50-100) Valproic Acid Last Dose Date 08/08/19 Valproic Acid Last Dose Time 2100 Allergies Allergies Coded Allergies Type Severity Reaction Last Updated Verified No Known Drug Allergies 01/11/15 No Disposition/Orders: Other (TO [facility]) ROSE WARREN MD Aug 11, 2019 13:55
--- NOTE | 2019-08-11 14:04 | PDOC3 ---
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 History of constipation with no evidence of ileus on x ray Plan: continue with dose adjustment as per our protection consultant, recommendations greatly appreciated. will order Amitiza as recommended by GI protection consultant on last admission further recommendations based on clinical course meds need to be corrected, per RN. hopefully discharge in the next 24 to 48 hours if he does not present agitation or further dose adjustments. dvt prophylaxis: SCD D/C PLANNING 34 MIN History of Present Illness History of Present Illness LESS lethargic, Vitals Vitals Vital Signs Date Time Temp Pulse Resp B/P (MAP) Pulse Ox O2 Delivery O2 Flow Rate FiO2 08/11/19 09:05 90 123/92 08/11/19 08:00 Room Air 08/11/19 07:00 98.3 16 96 98.3 Physical Exam General: Cooperative, No acute distress WALKING IN [place], GOOD BALANCE Heart: Regular rate, Normal S1, Normal S2 Lungs: Clear Abdomen: Normal bowel sounds, Soft, No tenderness Extremities: No clubbing, No cyanosis, No edema Skin: No rashes, No breakdown Comment Review of Relevant I have reviewed the following items dustin (where applicable) has been applied. Brief Hospital Course Mr. Borges is a 39 old [sex] who presented with [ DEPAKOTE TOXICITY ] CONDITION AT DISCHARGE: Improved Discharge Medications Current Medications Ondansetron HCl (Zofran) 4 mg PRN Q4HRS PRN IV NAUSEA/VOMITING; Start 08/09/19 at 18:30 Acetaminophen (Tylenol) 650 mg PRN Q4HRS PRN PO TEMP OVER 100.4F OR MILD PAIN; Start 08/09/19 at 18:30 Diphenhydramine HCl (Benadryl) 25 mg PRN Q4HRS PRN IVP ITCHING; Start 08/09/19 at 18:30 Docusate Sodium (Colace) 100 mg PRN BID PRN PO CONSTIPATION; Start 08/09/19 at 18:30 Albuterol Sulfate (Ventolin Neb Soln) 2.5 mg PRN Q4HRS PRN NEB SHORTNESS OF BREATH; Start 08/09/19 at 18:30 Guaifenesin (Robitussin) 200 mg PRN Q4HRS PRN PO COUGH; Start 08/09/19 at 18:30 Lorazepam (Ativan Inj) 2 mg PRN Q4HRS PRN IV ANXIETY / AGITATION; Start 08/09/19 at 18:30 Alprazolam (Xanax) 1 mg PRN DAILY PRN PO aggitation; Start 08/09/19 at 18:30 Bisacodyl (Dulcolax Tab) 5 mg PRN BID PRN PO CONSTIPATION- 2ND CHOICE; Start 08/09/19 at 18:30 Cetirizine HCl (ZyrTEC) 10 mg DAILY PO Last administered on 08/11/19at 09:04; Start 08/10/19 at 09:00 Clonidine HCl (Catapres) 0.1 mg BIDWBKFT/MARYAN PO Last administered on 08/11/19at 13:00; Start 08/10/19 at 08:00 Clonidine HCl (Catapres) 0.2 mg QHS PO Last administered on 08/10/19at 22:57; Start 08/09/19 at 21:00 Docusate Sodium (Colace) 100 mg BID PO Last administered on 08/11/19at 09:05; Start 08/09/19 at 21:00 Levothyroxine Sodium (Synthroid) 100 mcg DAILY07 PO Last administered on 08/11/19at 05:53; Start 08/10/19 at 07:00 Pantoprazole Sodium (Protonix) 40 mg DAILYAC PO Last administered on 08/11/19at 05:53; Start 08/10/19 at 07:30 Polyethylene Glycol (miraLAX PACKET) 17 gm DAILY PO ; Start 08/10/19 at 09:00 Trazodone HCl (Desyrel) 100 mg DAILYWBKFT PO Last administered on 08/11/19at 09:04; Start 08/10/19 at 08:00 Trazodone HCl (Desyrel) 200 mg QHS PO Last administered on 08/09/19at 20:23; Start 08/09/19 at 21:00; Stop 08/10/19 at 08:50; Status DC Benztropine Mesylate (Cogentin) 2 mg DAILY PO ; Start 08/10/19 at 09:00; Stop 08/10/19 at 08:50; Status DC Clonazepam (KlonoPIN) 1 mg QHS PO Last administered on 08/09/19at 20:22; Start 08/09/19 at 21:00; Stop 08/10/19 at 08:50; Status DC Quetiapine Fumarate (SEROquel) 200 mg QHS PO Last administered on 08/09/19at 20:23; Start 08/09/19 at 21:00; Stop 08/10/19 at 08:50; Status DC Quetiapine Fumarate (SEROquel) 25 mg PRN Q8HRS PRN PO agitation- 2ND CHOICE; Start 08/09/19 at 18:30 Lubiprostone (Amitiza) 24 mcg BIDWMEALS PO Last administered on 08/11/19at 09:05; Start 08/09/19 at 19:00 Benztropine Mesylate (Cogentin) 1 mg DAILY PO Last administered on 08/11/19at 09:04; Start 08/10/19 at 09:00 Clonazepam (KlonoPIN) 0.5 mg QHS PO Last administered on 08/10/19at 22:57; Start 08/10/19 at 21:00 Quetiapine Fumarate (SEROquel) 100 mg QHS PO Last administered on 08/10/19at 22:56; Start 08/10/19 at 21:00 Trazodone HCl (Desyrel) 100 mg QHS PO Last administered on 08/10/19at 22:57; Start 08/10/19 at 21:00 Haloperidol (Haldol) 2 mg TID PO Last administered on 08/11/19at 12:59; Start 08/10/19 at 09:00 Divalproex Sodium (Depakote Er) 500 mg QHS PO Last administered on 08/10/19at 22:57; Start 08/10/19 at 21:00 Active Scripts Active Pantoprazole Sodium (Pantoprazole Sodium) 40 Mg Tablet.dr 40 Mg PO DAILYAC 30 Days Reported Dok (Docusate Sodium) 100 Mg Capsule 100 Mg PO BID Alprazolam 1 Mg Tablet 1 Tab PO DAILY PRN Seroquel (Quetiapine Fumarate) 200 Mg Tablet 1 Tab PO QHS Polyethylene Glycol 3350 17 Gm Powd.pack 17 Gm PO DAILY Levothyroxine Sodium 100 Mcg Tablet 1 Tab PO DAILY Haloperidol 5 Mg Tablet 1 Tab PO TID Benztropine Mesylate 2 Mg Tablet 2 Mg PO DAILY Clonidine Hcl 0.2 Mg Tablet 1 Tab PO QHS Clonidine Hcl 0.1 Mg Tablet 0.1 Mg PO BIDWBKFT/MARYAN Clonazepam 1 Mg Tablet 1 Tab PO QHS Trazodone Hcl 100 Mg Tablet 200 Mg PO QHS Trazodone Hcl 100 Mg Tablet 100 Mg PO DAILYWBKFT Divalproex Sodium Er (Divalproex Sodium) 500 Mg Tab.er.24h 2 Tab PO QHS Cetirizine Hcl 10 Mg Tablet 1 Tab PO DAILY Dulcolax (Bisacodyl) 5 Mg Tablet.dr 5 Mg PO PRN BID PRN Vital Signs Vital Signs Date Time Temp Pulse Resp B/P (MAP) Pulse Ox O2 Delivery O2 Flow Rate FiO2 08/11/19 13:00 98 116/81 08/11/19 11:00 97.7 16 98 Room Air 97.7 Labs Laboratory Tests Test 08/10/19 04:41 Valproic Acid (Depakene) Level 87 mcg/mL (50-100) Valproic Acid Last Dose Date 08/08/19 Valproic Acid Last Dose Time 2100 Allergies Allergies Coded Allergies Type Severity Reaction Last Updated Verified No Known Drug Allergies 01/11/15 No Disposition/Orders: Other (D/C TO [facility]) ROSE WARREN MD Aug 11, 2019 14:04
[2019-08-11] MEDS ORDERED: QUET100T PO (14:08)
[2019-08-11] MEDS ORDERED: DIVA500T4 PO (14:08)
[2019-08-11] MEDS ORDERED: ACET325T9 PO (14:08)
[2019-08-11] MEDS ORDERED: TRAZ-123 PO (14:08)
[2019-08-11] MEDS ORDERED: QUET25TA PO (14:08)
[2019-08-11] MEDS ORDERED: HALO2TAB PO (14:08)
--- NOTE | 2019-08-11 14:09 | SNU/HH DC ---
DISCHARGE ORDERS DISCHARGE INFORMATION: DISCHARGE DATE: Aug 11, 2019 CONDITION ON DISCHARGE: Stable CODE STATUS: Code Status: Full USP: SNF STAY <30 DAYS: No HOSPICE: HOSPICE: No HOSPICE EVAL & TREAT: No LTAC: ADMIT TO LTAC: No POST DISCHARGE ORDERS: ACTIVITY ORDERS: Avoid exertion WEIGHT BEARING STATUS: Partial weight bearing DIET AFTER DISCHARGE: Regular WOUND/INCISION CARE: Change dressing, Routine catheter care CHECKS AFTER DISCHARGE: CHECKS AFTER DISCHARGE: Check blood press - daily TREATMENT/EQUIPMENT ORDERS: ADAPTIVE EQUIPMENT NEEDED: None Physical Therapy For: Safety Occupational Therapy For: ADL's Speech Language Pathology For: Swallow Cognition DISCHARGE MEDICATIONS: Home Meds Active Scripts Quetiapine Fumarate (QUETIAPINE FUMARATE) 25 Mg Tablet, 25 MG PO PRN Q8HRS PRN for agitation- 2ND CHOICE for 10 Days, #20 TAB Prov:ROSE WARREN MD 08/11/19 Quetiapine Fumarate (QUETIAPINE FUMARATE) 100 Mg Tablet, 100 MG PO QHS for PSYCHOSIS for 14 Days, #14 TAB Prov:ROSE WARREN MD 08/11/19 Haloperidol (HALOPERIDOL) 2 Mg Tablet, 2 MG PO TID for MOOD, BEHAVIOR for 7 Days, #21 TAB Prov:ROSE WARREN MD 08/11/19 Trazodone Hcl (TRAZODONE HCL) 100 Mg Tablet, 100 MG PO QHS for SLEEP, DEPRESSION for 30 Days, #30 TAB Prov:ROSE WARREN MD 08/11/19 Divalproex Sodium (DEPAKOTE ER) 500 Mg Tab.er.24h, 500 MG PO QHS for MOOD CONTROL for 10 Days, #10 TAB.SR Prov:ROSE WARREN MD 08/11/19 Acetaminophen (TYLENOL) 325 Mg Tablet, 650 MG PO PRN Q4HRS PRN for TEMP OVER 100.4F OR MILD PAIN for 10 Days, #30 TAB Prov:ROSE WARREN MD 08/11/19 Pantoprazole Sodium (PANTOPRAZOLE SODIUM ) 40 Mg Tablet.dr, 40 MG PO DAILYAC for GERD for 30 Days, #30 TAB.SR Prov:CYRIL JOHNSON MD 08/09/19 Reported Medications Docusate Sodium (DOK) 100 Mg Capsule, 100 MG PO BID for constipation, CAP 08/08/19 Alprazolam (ALPRAZOLAM) 1 Mg Tablet, 1 TAB PO DAILY PRN for aggitation, #60 TAB 08/08/19 Polyethylene Glycol 3350 (POLYETHYLENE GLYCOL 3350) 17 Gm Powd.pack, 17 GM PO DAILY for constipation, PKT 08/08/19 Levothyroxine Sodium (LEVOTHYROXINE SODIUM) 100 Mcg Tablet, 1 TAB PO DAILY for thyroid replacement, #30 TAB 5 Refills 08/08/19 Benztropine Mesylate (BENZTROPINE MESYLATE) 2 Mg Tablet, 2 MG PO DAILY for drooling, TAB 08/08/19 Clonidine Hcl (CLONIDINE HCL) 0.2 Mg Tablet, 1 TAB PO QHS for agressive, #30 TAB 2 Refills 08/08/19 Clonidine Hcl (CLONIDINE HCL) 0.1 Mg Tablet, 0.1 MG PO BIDWBKFT/MARYAN for aggressive, TAB 08/08/19 Clonazepam (CLONAZEPAM) 1 Mg Tablet, 1 TAB PO QHS, #30 TAB 02/25/17 Trazodone Hcl (TRAZODONE HCL) 100 Mg Tablet, 100 MG PO DAILYWBKFT, #30 TAB 1 Refill 02/25/17 Cetirizine Hcl (CETIRIZINE HCL) 10 Mg Tablet, 1 TAB PO DAILY, #30 TAB 5 Refills 02/25/17 Bisacodyl (DULCOLAX) 5 Mg Tablet.dr, 5 MG PO PRN BID PRN for CONSTIPATION, TAB 0 Refills 02/25/17 Discontinued Reported Medications Quetiapine Fumarate (SEROQUEL) 200 Mg Tablet, 1 TAB PO QHS for sleep, #30 TAB 1 Refill 08/08/19 Haloperidol (HALOPERIDOL) 5 Mg Tablet, 1 TAB PO TID for mood, #60 TAB 1 Refill 08/08/19 Trazodone Hcl (TRAZODONE HCL) 100 Mg Tablet, 200 MG PO QHS, #30 TAB 1 Refill 02/25/17 Divalproex Sodium (DIVALPROEX SODIUM ER) 500 Mg Tab.er.24h, 2 TAB PO QHS, #60 TAB 1 Refill 02/25/17 ROSE WARREN MD Aug 11, 2019 14:09
[2019-08-11 14:53] VITALS: BP 112/74
--- NOTE | 2019-08-11 15:26 | PDOC ---
PROGRESS NOTES Assessment Assessment IMPRESSION: Epilepsy, last seizure reportedly in 2011. Elevated VPA trough level, now normalized. Autism. Intellectual disability Abnormal head CT. Doubt normal pressure hydrocephalus Severe constipation. Encephalopathy due to excessive psychotropic medications RECOMMENDATIONS/PLAN: Continue Depakote 500 mg HS. Treat medical diseases. FU with Dr. Samson in [facility]. SUBJECTIVE: Not able to communicate. OBJECTIVE: No seizures per his nurse. Past Medical History CENTRAL NERVOUS SYSTEM: Dementia, Seizure Psych: Anxiety, Bipolar, Other Endocrine: Hypothyroidism Past Surgical History Appendectomy. Social History ALCOHOL: none Drugs: None MEDICATIONS: Refer to [facility] REVIEW OF SYSTEMS: Refer to PMH and PSH. PHYSICAL EXAMINATION: General appearance in no acute distress. HEENT: Normocephalic and nontraumatic. Eyes, nose, ears, and throat are unremarkable. Hearing decrease. Neck is supple. No lymphadenopathy. No Crepitus. Cardiovascular: S1, S2, regular rate and rhythm. Pulmonary: Clear to auscultation bilaterally. Abdomen: Bowel sounds are positive. Extremities: No rash, lesions, or edema. No restriction of range of motion NEUROLOGICAL EXAMINATION: Awake. Able to answer a few questions. Not fully oriented to time, place and person. PERRL. EOMI. CN: no focal findings. Muscle tone: within normal. Muscle strength: 5 DTR: 2 Plantar reflex: Flexor response bilaterally Gait: Able to walk in room. Sensory exam: no abnormal findings. No acute cerebellar signs elicited. Objective Objective Vital Signs Date Time Temp Pulse Resp B/P (MAP) Pulse Ox O2 Delivery O2 Flow Rate FiO2 08/11/19 14:53 97.6 90 18 112/74 (87) 98 Room Air 97.6 Intake and Output 08/11/19 07:00 Intake Total 240 ml Balance 240 ml Intake Oral 240 ml # Voids 4 # Bowel Movements 1 Vitals Signs Vitals VS - Last 72 Hours, by Label Date Time Temp Pulse Resp B/P (MAP) Pulse Ox O2 Delivery O2 Flow Rate FiO2 08/11/19 14:53 97.6 90 18 112/74 (87) 98 Room Air 97.6 08/11/19 13:00 98 116/81 08/11/19 11:00 97.7 98 16 116/81 (93) 98 Room Air 97.7 08/11/19 09:05 90 123/92 08/11/19 08:00 Room Air 08/11/19 07:00 98.3 90 16 123/92 (102) 96 Room Air 98.3 08/11/19 03:00 97.1 90 18 112/74 (87) 98 Room Air 97.1 08/10/19 22:57 81 103/75 08/10/19 20:00 Room Air 08/10/19 19:00 97.5 81 18 103/75 (84) Room Air 97.5 08/10/19 14:21 74 113/84 08/10/19 08:00 74 113/84 08/10/19 07:00 74 16 113/84 (94) 100 Room Air Medication Medications Current Medications Clonazepam (KlonoPIN) 0.5 mg QHS PO Last administered on 08/10/19at 22:57; Start 08/10/19 at 21:00 Divalproex Sodium (Depakote Er) 500 mg QHS PO Last administered on 08/10/19at 22:57; Start 08/10/19 at 21:00 Quetiapine Fumarate (SEROquel) 100 mg QHS PO Last administered on 08/10/19at 22:56; Start 08/10/19 at 21:00 Trazodone HCl (Desyrel) 100 mg QHS PO Last administered on 08/10/19at 22:57; Start 08/10/19 at 21:00 Comment Review of Relevant I have reviewed the following items dustin (where applicable) has been applied. DEEJAY DELA CRUZ MD Aug 11, 2019 15:26
== END 2019-08-11 16:45 | disposition home or self-care (01) ==
LOC: UNDODISIN 18:01 → INTOOBSV 18:01 → 4 NORTH 18:01
PROVIDERS: ADMIT Internal Medicine; ATTEND Internal Medicine
DX: F84.0 Autistic disorder (principal); E03.9 Hypothyroidism, unspecified; F03.90 Unspecified dementia, unspecified severity, without behavioral disturbance, psychotic disturbance, mood disturbance, and anxiety; F31.9 Bipolar disorder, unspecified; F79 Unspecified intellectual disabilities; G40.909 Epilepsy, unspecified, not intractable, without status epilepticus; G93.40 Encephalopathy, unspecified; T42.6X5A Adverse effect of other antiepileptic and sedative-hypnotic drugs, initial encounter; Y92.89 Other specified places as the place of occurrence of the external cause; Z79.899 Other long term (current) drug therapy
CPT/HCPCS: 36415; 80164; G0378; G0379